=== PATIENT | female | born 1995 | race Hispanic/Latino ===

== ENCOUNTER 2019-10-17 04:09 | Inpatient (IN) | payer MEDICAID, OTHER ==
[~2019-10-17] VITALS: Ht 157.5 cm; Wt 88.5 kg
[~2019-10-17 04:09] MED LIST: FERR-52 PO; PREN1TAB26 PO
[2019-10-17] MEDS ORDERED: ONDANSETRON HCL 4 MG/2 ML VIAL ONE (04:26)
[2019-10-17] MEDS ORDERED: KETOROLAC TROMETHAMINE 30MG/ML ONE ×2 (04:26→11:48)
[2019-10-17 04:48] LABS: BASOPHILS % (AUTO) 0.4 % (0.0-5.0); HEMATOCRIT 38.5 % (36-48); LYMPHOCYTES % (AUTO) 29.1 % (21.0-51.0); MEAN CORPUSCULAR HEMOGLOBIN 27.1 pg (27.0-33.0); MEAN CORPUSCULAR HGB CONC 32.5 g/dL (32.0-36.0); MEAN CORPUSCULAR VOLUME 83.5 fL (79-99); MONOCYTES % (AUTO) 5.3 % (3.0-13.0); NEUTROPHILS % (AUTO) 63.8 % (40.0-77.0); PLATELET COUNT (AUTO) 292 K/uL (130-400); RED BLOOD CELL COUNT(AUTO) 4.61 MIL/uL (4.00-5.50); RED CELL DISTRIBUTION WIDTH 14.3 % (11.0-15.5); WHITE BLOOD COUNT (AUTO) 8.1 K/uL (4.8-10.8)
[2019-10-17 04:56] LABS: CREATININE 0.7 mg/dL (0.5-1.5)
[2019-10-17 05:01] LABS: ALBUMIN 3.6 g/dL (3.5-5.0); BILIRUBIN,TOTAL 0.5 mg/dL (0.2-1.0); TOTAL PROTEIN, SERUM 7.8 g/dL (6.0-8.3)
[2019-10-17] MEDS ORDERED: ZOSYN 3.375GM+NS 50ML 50 ML IV ONE (05:43)
[2019-10-17] MEDS ORDERED: POTASSIUM CHLORIDE 20 MEQ ERTAB PO ONE (06:41)
[2019-10-17] MEDS ORDERED: POTASSIUM CHLORIDE 20 MEQ in SODIUM CHLORIDE 0.9% 1000ML 1,000 ML IV SCH (06:51)
[2019-10-17] MEDS ORDERED: HYDRALAZINE HCL 20 MG/ML VIAL IV PRN (07:00)
[2019-10-17] MEDS ORDERED: NS-20 MEQ KCL 1000ML 1,000 ML IV ONE (11:48)
[2019-10-17] MEDS ORDERED: FAMOTIDINE/PF 20 MG/2 ML VIAL IV ONE (11:51)
--- NOTE | 2019-10-17 13:40 | NUR ---
PATIENT ORIENTED TO ROOM. PATIENT AMBULATING TO RESTROOM, NO COMPLAINTS OF DIZZINESS. REPORTS DULL PAIN 3/10. PATIENT DECLINED AVAILABLE PAIN MEDICATION. ADVISED PATIENT TO CALL WITH ANY NEEDS OR CONCERNS. CALL LIGHT LEFT IN REACH.
[2019-10-17 14:02] VITALS: BP 123/68
[2019-10-17] MEDS: ZOSYN 3.375GM+NS 50ML 50 ML IV SCH ×2 (15:06→23:04)
[2019-10-17 15:28] VITALS: BP 113/52
--- NOTE | 2019-10-17 16:15 | NUR ---
CYRIL CANAS ROUNDING ON PATIENT. NEW ORDERS RECEIVED FOR HIDA SCAN . CLEAR LIQUID TODAY NPO AFTER MIDNIGHT.
--- NOTE | 2019-10-17 16:37 | NUR ---
CM NOTE/IA MEET WITH PATIENT IN ROOM. PER PATIENT IS INDEPENDENT WITH ADLS, LIVES WITH SPOUSE AND HER 2 MINOR CHILDREN, DRIVES, NO DME IN USE, NO PROVIDER OR HOME HEALTH AND FEELS SAFE TO RETURN HOME ONCE DISCHARGED FROM HOSPITAL. SELF REFERRAL PACKETS ALONG WITH [employer] DISCOUNT CARD GIVEN TO PATIENT, VERBALIZED UNDERSTANDING. Addendum: 10/17/19 at 1638 by NEAL BECERRA RN CM Amended: Links added.
[2019-10-17] MEDS: MORPHINE SULFATE 2 MG/ML 1ML SYG IVP PRN (16:54)
--- NOTE | 2019-10-17 16:54 | NUR ---
MORPHINE 2MG GIVEN ORDERED FOR PAIN RATED 7/10 RADIATING TO RIGHT SIDE OF BACK. ADVISED PATIENT TO CALL FOR ASSISTANCE OR CONCERNS. PATIENT VERBALIZED UNDERSTANDING.
[2019-10-17] MEDS: NS-20 MEQ KCL 1000ML 1,000 ML IV SCH ×2 (17:15→22:23)
[2019-10-17 19:46] VITALS: BP 114/69
[2019-10-17] MEDS: FAMOTIDINE/PF 20 MG/2 ML VIAL IV SCH (20:54)
[2019-10-17 23:08] VITALS: BP 110/69
[2019-10-17] MEDS: KETOROLAC TROMETHAMINE 30MG/ML IV PRN (23:10)
[2019-10-18] MEDS: NS-20 MEQ KCL 1000ML 1,000 ML IV SCH ×2 (00:25→13:58)
[2019-10-18 04:05] VITALS: BP 94/52
[2019-10-18 04:36] LABS: BASOPHILS % (AUTO) 0.6 % (0.0-5.0); EOSINOPHILS % (AUTO) 2.1 % (0.0-8.0); HEMATOCRIT 36.1 % (36-48); LYMPHOCYTES % (AUTO) 38.7 % (21.0-51.0); MEAN CORPUSCULAR HGB CONC 32.1 g/dL (32.0-36.0); MEAN CORPUSCULAR VOLUME 87.2 fL (79-99); MONOCYTES % (AUTO) 5.6 % (3.0-13.0); NEUTROPHILS % (AUTO) 52.8 % (40.0-77.0); PLATELET COUNT (AUTO) 243 K/uL (130-400); RED BLOOD CELL COUNT(AUTO) 4.14 MIL/uL (4.00-5.50); RED CELL DISTRIBUTION WIDTH 14.6 % (11.0-15.5); WHITE BLOOD COUNT (AUTO) 5.2 K/uL (4.8-10.8)
[2019-10-18 05:04] LABS: CREATININE 0.7 mg/dL (0.5-1.5); POTASSIUM 3.8 mmol/L (3.5-5.1)
[2019-10-18] MEDS: ZOSYN 3.375GM+NS 50ML 50 ML IV SCH ×3 (07:04→23:03)
[2019-10-18 07:55] VITALS: BP 104/57
[2019-10-18] MEDS: FAMOTIDINE/PF 20 MG/2 ML VIAL IV SCH ×2 (09:22→21:50)
--- NOTE | 2019-10-18 09:25 | NUR ---
PATIENT ORIENTED TO ROOM. NO PAIN REPORTED. EPIDURAL IN PLACE AND INFUSING. OB PAD CLEAN AND DRY. VAGINAL PACKING IN PLACE. ADVISED PATIENT TO CALL WITH ANY NEEDS OR CONCERNS. CALL LIGHT LEFT IN REACH. PATIENT VOICED UNDERSTANDING. Addendum: 10/18/19 at 1129 by ROBE BEAUCHAMP LVN LVN ERROR: NOTE PLACED ON WRONG PATIENT.
--- NOTE | 2019-10-18 11:25 | NUR ---
PATIENT LEFT UNIT VIA WHEELCHAIR FOR HIDA SCAN.
--- NOTE | 2019-10-18 13:54 | NUR ---
pt is back from Hida scan Addendum: 10/18/19 at 1403 by BRITNEY QUINN RN Amended: Links added.
[2019-10-18 15:28] VITALS: BP 113/47
[2019-10-18] MEDS: KETOROLAC TROMETHAMINE 30MG/ML IV PRN (18:24)
[2019-10-18 19:45] VITALS: BP 115/66
[2019-10-18 23:05] VITALS: BP 116/69
[2019-10-19] MEDS: NS-20 MEQ KCL 1000ML 1,000 ML IV SCH ×3 (00:17→21:45)
[2019-10-19 03:40] VITALS: BP 125/72
[2019-10-19] MEDS: KETOROLAC TROMETHAMINE 30MG/ML IV PRN ×3 (03:49→17:35)
[2019-10-19] MEDS: ZOSYN 3.375GM+NS 50ML 50 ML IV SCH ×3 (06:25→20:35)
[2019-10-19 07:30] VITALS: BP 127/78
[2019-10-19 09:18] LABS: ALBUMIN 3.1 g/dL (3.5-5.0); BILIRUBIN,TOTAL 0.4 mg/dL (0.2-1.0); CREATININE 0.8 mg/dL (0.5-1.5); MAGNESIUM 1.8 mg/dL (1.80-2.40); PHOSPHORUS 3.6 mg/dL (2.5-4.9); POTASSIUM 3.9 mmol/L (3.5-5.1)
[2019-10-19] MEDS: FAMOTIDINE/PF 20 MG/2 ML VIAL IV SCH ×2 (09:20→20:34)
[2019-10-19 09:37] LABS: BASOPHILS % (AUTO) 0.4 % (0.0-5.0); EOSINOPHILS % (AUTO) 2.2 % (0.0-8.0); MEAN CORPUSCULAR HEMOGLOBIN 27.2 pg (27.0-33.0); MEAN CORPUSCULAR HGB CONC 32.4 g/dL (32.0-36.0); MEAN CORPUSCULAR VOLUME 83.9 fL (79-99); MONOCYTES % (AUTO) 5.1 % (3.0-13.0); PLATELET COUNT (AUTO) 259 K/uL (130-400); RED BLOOD CELL COUNT(AUTO) 4.41 MIL/uL (4.00-5.50); RED CELL DISTRIBUTION WIDTH 14.3 % (11.0-15.5); WHITE BLOOD COUNT (AUTO) 6.7 K/uL (4.8-10.8)
[2019-10-19 11:30] VITALS: BP 125/71
--- NOTE | 2019-10-19 12:28 | NUR ---
Dr. Lane at bedside at this time. After examining pt, he called Dr. Galvin and gave update on pt. Addendum: 10/19/19 at 1304 by BRITNEY QUINN RN Amended: Links added.
[2019-10-19 15:39] VITALS: BP 118/75
[2019-10-19] MEDS: ONDANSETRON HCL 4 MG/2 ML VIAL IV PRN (17:41)
[2019-10-19 20:11] VITALS: BP 116/63
[2019-10-20] VITALS (23 sets, daily range): BP systolic 104–130; BP diastolic 56–81
[2019-10-20] MEDS: KETOROLAC TROMETHAMINE 30MG/ML IV PRN ×2 (02:42→10:09)
[2019-10-20 04:55] LABS: BASOPHILS % (AUTO) 0.4 % (0.0-5.0); EOSINOPHILS % (AUTO) 1.9 % (0.0-8.0); HEMATOCRIT 33.7 % (36-48); LYMPHOCYTES % (AUTO) 34.9 % (21.0-51.0); MEAN CORPUSCULAR HEMOGLOBIN 28.1 pg (27.0-33.0); MEAN CORPUSCULAR HGB CONC 33.2 g/dL (32.0-36.0); MEAN CORPUSCULAR VOLUME 84.7 fL (79-99); MONOCYTES % (AUTO) 6.6 % (3.0-13.0); NEUTROPHILS % (AUTO) 55.9 % (40.0-77.0); PLATELET COUNT (AUTO) 240 K/uL (130-400); RED BLOOD CELL COUNT(AUTO) 3.98 MIL/uL (4.00-5.50); RED CELL DISTRIBUTION WIDTH 14.3 % (11.0-15.5)
--- NOTE | 2019-10-20 05:15 | NUR ---
PT. UP AND SHOWERED, WELL TOLERATED.
[2019-10-20 05:17] LABS: ALANINE AMINOTRANSFERASE 60 U/L (12-78); ALBUMIN 2.9 g/dL (3.5-5.0); ASPARTATE AMINOTRANSFERASE 36 U/L (10-37); BILIRUBIN,TOTAL 0.4 mg/dL (0.2-1.0); CARBON DIOXIDE 25 mmol/L (21-32); CHLORIDE 107 mmol/L (101-111); CREATININE 0.8 mg/dL (0.5-1.5); GLOMERULAR FILTR. RATE CALC 92 mL/min (>60); GLUCOSE,RANDOM 86 mg/dL (70-105); PHOSPHORUS 3.6 mg/dL (2.5-4.9); POTASSIUM 3.8 mmol/L (3.5-5.1); SODIUM SERUM 140 mmol/L (136-145); TOTAL PROTEIN, SERUM 6.6 g/dL (6.0-8.3); UREA NITROGEN, BLOOD 4 mg/dL (7-18)
[2019-10-20] MEDS: ZOSYN 3.375GM+NS 50ML 50 ML IV SCH ×3 (05:31→20:29)
--- NOTE | 2019-10-20 06:30 | NUR ---
PT'S PERSONAL BELONGINGS DIETETIC TECH BY SECURITY.
--- NOTE | 2019-10-20 07:45 | NUR ---
PATIENT WAS TAKEN VIA BED TO OR PATIENT STABLE AND HAS BEEN COMFORTABLE. SHE IS ALERT, AWAKE AND ORIENTED. VITAL SIGNS STABLE.
[2019-10-20] MEDS ORDERED: ONDANSETRON HCL 4 MG/2 ML VIAL ONE (07:47)
[2019-10-20] MEDS ORDERED: LIDOCAINE PF 2% 5ML ABBOJECT ONE (07:47)
[2019-10-20] MEDS ORDERED: GLYCOPYRROLATE 1 MG/5 ML SYRINGE ONE (07:48)
[2019-10-20] MEDS ORDERED: NEOSTIGMINE 5MG/5ML SYR IV ONE (07:48)
[2019-10-20] MEDS ORDERED: PROPOFOL 10 MG/ML 20ML VIAL IV ONE (07:48)
[2019-10-20] MEDS ORDERED: DEXAMETHASONE SOD PHOSPHATE 10MG/ML 1ML VIAL ONE (07:48)
[2019-10-20] MEDS ORDERED: ROCURONIUM 10MG/1ML SYR 10 MG/ML ML ONE (07:48)
[2019-10-20] MEDS ORDERED: MIDAZOLAM HCL 1 MG/ML 2ML VIAL ONE (07:48)
[2019-10-20] MEDS ORDERED: FENTANYL CITRATE PF 50 MCG/1 ML 2ML VIAL ONE ×2 (07:49→09:20)
[2019-10-20] MEDS ORDERED: BUPIVACAINE/PF 0.5% 30ML VIAL ONE (08:09)
[2019-10-20] MEDS: ONDANSETRON HCL 4 MG/2 ML VIAL IV PRN (10:33)
--- NOTE | 2019-10-20 10:45 | NUR ---
PATIENT BACK FROM PACU AND HAD A LAP DAINA. C/O HAVING PAIN OF 7-8 AND INDICATED NEEDING MORPHINE. PATIENT INFORMED THAT MORPHINE WAS STILL A MEDICATION SHE COULD HAVE AND WOULD MEDICATE ONCE SHE IS ASSESSED.
[2019-10-20] MEDS: FAMOTIDINE/PF 20 MG/2 ML VIAL IV SCH ×2 (11:15→20:29)
[2019-10-20] MEDS: NS-20 MEQ KCL 1000ML 1,000 ML IV SCH ×2 (11:15→21:22)
[2019-10-20] MEDS ORDERED: ACETAMINOPHEN-CODEINE 300/30MG TAB PO PRN (11:15)
[2019-10-20] MEDS: MORPHINE SULFATE 2 MG/ML 1ML SYG IVP PRN ×2 (11:34→20:28)
--- NOTE | 2019-10-20 12:00 | NUR ---
PATIENT ASSISTED UP TO BATHROOM AND VOIDED 300CC. TOLERATED ACTIVITY WELL.
--- NOTE | 2019-10-20 13:00 | NUR ---
PATIENT UP AND AMBULATED IN HALLWAY AFTER LUNCH. STATES FEELING MUCH BETTER AFTER HAVING THE MORPHINE.
--- NOTE | 2019-10-20 15:00 | NUR ---
PATIENT UP AMBULATING IN HALLWAY AND TOLERATING ACTIVITY WELL.
--- NOTE | 2019-10-20 18:30 | NUR ---
PATIENT UP TO BATHROOM AND STATES HAVING A 2ND BM. SHE HAD ONE AFTER DINNER AT 1700. PIV INFUSING WELL.
[2019-10-21 02:56] VITALS: BP 104/58
[2019-10-21] MEDS: ZOSYN 3.375GM+NS 50ML 50 ML IV SCH (04:54)
[2019-10-21 05:47] LABS: BASOPHILS % (AUTO) 0.3 % (0.0-5.0); EOSINOPHILS % (AUTO) 0.1 % (0.0-8.0); HEMATOCRIT 36.5 % (36-48); MEAN CORPUSCULAR HEMOGLOBIN 27.1 pg (27.0-33.0); MEAN CORPUSCULAR HGB CONC 32.3 g/dL (32.0-36.0); MEAN CORPUSCULAR VOLUME 83.7 fL (79-99); MONOCYTES % (AUTO) 6.4 % (3.0-13.0); NEUTROPHILS % (AUTO) 66.9 % (40.0-77.0); PLATELET COUNT (AUTO) 285 K/uL (130-400); RED BLOOD CELL COUNT(AUTO) 4.36 MIL/uL (4.00-5.50); RED CELL DISTRIBUTION WIDTH 14.2 % (11.0-15.5); WHITE BLOOD COUNT (AUTO) 9.3 K/uL (4.8-10.8)
[2019-10-21 06:04] LABS: ALBUMIN 3.4 g/dL (3.5-5.0); BILIRUBIN,TOTAL 0.5 mg/dL (0.2-1.0); CREATININE 0.9 mg/dL (0.5-1.5); POTASSIUM 3.8 mmol/L (3.5-5.1); TOTAL PROTEIN, SERUM 7.6 g/dL (6.0-8.3)
[2019-10-21 07:20] VITALS: BP 104/68
[2019-10-21] MEDS: NS-20 MEQ KCL 1000ML 1,000 ML IV SCH (08:24)
[2019-10-21] MEDS: FAMOTIDINE/PF 20 MG/2 ML VIAL IV SCH (09:08)
[2019-10-21] MEDS: KETOROLAC TROMETHAMINE 30MG/ML IV PRN (09:12)
--- NOTE | 2019-10-21 11:00 | NUR ---
DR. SOTELO'S PHYSICIAN EVENT CREW TECHNICIAN, KEELY ROUNDED AND DISCHARGE ORDER GIVEN AND SCRIPT LEFT FOR PAIN MANAGEMENT AT HOME. INFORMED PATIENT TO FOLLOW A LOWFAT DIET AFTER DISCHARGE.
[2019-10-21 11:26] VITALS: BP 115/61
--- NOTE | 2019-10-21 13:10 | NUR ---
CYRIL SAEED ROUNDED AND DISCHARGED PATIENT TO HOME. WAS MADE AWARE THAT KIMI RIGGS HAD RUNDED AND DISCHARGED PT AND SCRIPT LEFT FOR PATIENT THIS A.M.
--- NOTE | 2019-10-21 14:05 | NUR ---
PATIENT WAS TAKEN VIA W/C TO FAMILY VEHICLE AND WAS DISCHARGED TO HER SPOUSE. PATIENT STABLE AND DENIES PAIN.
== END 2019-10-21 14:05 | disposition home or self-care (01) | DRG 418 ==
LOC: EDH 04:09 → EDHIP 04:10 → WSH 13:40
PROVIDERS: ADMIT Internal Medicine; ATTEND Internal Medicine
PROC: 0FT44ZZ Resection of Gallbladder, Percutaneous Endoscopic Approach (ICD-10-PCS; principal; 2019-10-20 08:00)
DX: K80.66 Calculus of gallbladder and bile duct with acute and chronic cholecystitis without obstruction (principal); E87.1 Hypo-osmolality and hyponatremia; E87.6 Hypokalemia; K76.0 Fatty (change of) liver, not elsewhere classified; K82.8 Other specified diseases of gallbladder; E66.01 Morbid (severe) obesity due to excess calories; Z68.35 Body mass index [BMI] 35.0-35.9, adult; Z91.018 Allergy to other foods
CPT/HCPCS: 36415; 76705; 78226; 80048; 80053; 81025; 83690; 83735; 84100; 84145; 85025; 86140; A9537; G0378; J1100; J1885; J2001; J2250; J2405; J2543; J2704; J2710; J3010; J3480; J3490; J7030